=== PATIENT | male | born 1990 | race Caucasian/White ===

== ENCOUNTER 2019-04-11 03:38 | Emergency (ER) | payer MEDICAID, OTHER ==
[~2019-04-11] VITALS: Ht 175.3 cm; Wt 78.0 kg
[2019-04-11 06:40] VITALS: BP 125/78
== END 2019-04-11 06:42 | disposition home or self-care (01) ==
LOC: ER 03:38
DX: H66.92 Otitis media, unspecified, left ear (principal)
CPT/HCPCS: 99283